=== PATIENT | male | born 1940 | race Caucasian/White ===

== ENCOUNTER 2016-12-09 09:22 | Observation (INO) | payer BC ==
--- NOTE | ~2016-12-09 | HP ---
History And Physical [facility] [address] [facility] [address] [place]. [address] NAME: ZONIA MORIN : 42 STATUS : ADM Praful PAT#: [id number] AGE: 76 ADM/REG DATE : 12/09/16 MR#: [id number] REPORT SERV DATE: 12/09/16 DICTATED BY: MIKEL MOHAN DATE: 12/09/16 REPORT STATUS : Draft TRANSCRIBED BY: MODL DATE: 12/09/16 DATE OF ADMISSION: 12/09/2016 REASON FOR ADMISSION: Regarding shortness of breath, chest discomfort, and persistent atrial fibrillation. HISTORY OF PRESENT ILLNESS: Mr. Morin is a 76-year-old gentleman, who sees Dr. Vincent Lynch as well as has also seen Dr. Josue Ponce at the [place] [facility]. He has been noted to have persistent atrial fibrillation and underwent cardioversion in 09/2016. He converted to sinus rhythm at that time, but did not maintain sinus rhythm and when he was seen back in the office in early September, he was noted to be in atrial fibrillation again, although with a reasonably controlled ventricular response on high-dose metoprolol. He was complaining of increasing shortness of breath along with complaints of chest discomfort described as chest tightness associated with activity. He had been referred to Pulmonary Medicine in [place] and apparently, a CT scan was done, showing evidence for emphysematous disease. The patient does have a long tobacco abuse history, although he quit nearly 30 years ago. He received an echocardiogram as well, showing essentially normal cardiac structure and function. Today, he presented to [facility] because he has been having worsening problems with both the shortness of breath, especially while lying down flat, and chest tightness. His workup in the [facility] indicated possibility for congestive heart failure both by exam as well as chest x-ray showing some evidence of pulmonary vascular congestion and an elevated BNP of 403. The patient did receive a dose of IV Lasix in the emergency room. He did put out about 2 L to this medication, but says that his symptoms have essentially been unchanged. His workup in the emergency room apart from the atrial fibrillation was otherwise unremarkable, and his initial troponin was less than 0.02. He is admitted for further workup and treatment. PAST MEDICAL HISTORY: Notable for a history of hypertension, history of persistent atrial fibrillation, longstanding tobacco abuse, and probable COPD and emphysema. HOME MEDICATIONS: Include albuterol, beclomethasone, Prevacid, Medrol Dosepak, metoprolol, and warfarin 4 mg p.o. daily. FAMILY HISTORY: Noncontributory. Negative for premature coronary disease or sudden cardiac . SOCIAL HISTORY: Long history of tobacco abuse, although he has quit for 30 years. . Denies alcohol abuse or illicit drug use. REVIEW OF SYSTEMS: As noted above. All other systems reviewed and negative. PHYSICAL EXAMINATION: GENERAL: He is in no acute distress. History And Physical [address] [address] NAME: ZONIA MORIN : 42 STATUS : ADM Praful PAT#: [id number] AGE: 76 ADM/REG DATE : 12/09/16 MR#: [id number] REPORT SERV DATE: 12/09/16 DICTATED BY: MIKEL MOHAN DATE: 12/09/16 REPORT STATUS : Draft TRANSCRIBED BY: MODJay DATE: 12/09/16 VITAL SIGNS: Blood pressure of 130/72; his pulse is 84, irregularly irregular, in atrial fibrillation; respirations of 18; O2 sat of 98%. GENERAL: Well developed, well nourished. HEENT: No icterus. Good dentition. NECK: Supple. No masses or thyromegaly. LUNGS: Breathing comfortably. No rales or wheezes. COR: He has an irregularly irregular rhythm. ABD: Soft, nondistended, nontender. No hepatosplenomegaly. EXT: No clubbing, cyanosis, or edema. Peripheral pulses 2+/= bilaterally. SKIN: Warm and dry. No visible lesions. MS: Chest wall without deformity. No obvious clavicular fractures. NEURO/PSYCH: Oriented x3. No anxiety or depression. IMAGING: Chest x-ray on admission did show some mild evidence for pulmonary vascular congestion and some emphysematous changes. LABORATORY VALUES: As mentioned, his BNP was elevated at 403. His INR was 2.3. His white count is 7.0, hematocrit of 41, platelet count 261. Electrolytes are within normal limits with a BUN of 13, creatinine of 1.10, glucose of 94. Troponin was less than 0.02. IMPRESSION: The patient's main complaints are shortness of breath and chest tightness with exertion, suggesting the possibility of unstable angina. The symptoms above could be secondary to: 1. Undiagnosed coronary disease. 2. Persistent atrial fibrillation, status post cardioversion, but early recurrence of atrial fibrillation and currently in atrial fibrillation, although with good control of ventricular response on high-dose beta-ryann. 3. Congestive heart failure, and there is some evidence for this on his initial exam and chest x-ray as well as his elevated BNP. He had a recent echocardiogram, showing normal cardiac structure and function and normal LV systolic function. 4. Finally emphysema/chronic obstructive pulmonary disease, long history of tobacco abuse, although quit [address] scan with evidence for emphysematous changes. RECOMMENDATIONS: 1. We will continue with IV diuresis, watch electrolytes, BUN and creatinine carefully. 2. Would recommend that the patient have a stress myocardial perfusion imaging study. Question use of exercise versus vasodilator agent. 3. In reference to his persistent atrial fibrillation and whether this is causing any part of his symptoms, I would like to try to restore normal sinus rhythm if possible. The length of time he has been in atrial fibrillation is unclear. We do have notes from 2011 showing he was in sinus rhythm, but then the most recent re-establishment with us is in 09/2016, at which time he was in atrial fibrillation. Along the lines of restoring sinus rhythm, I would decrease the metoprolol as when we electrically converted the patient, his underlying sinus rhythm was modest sinus bradycardia in the high 50s. We will try to decrease the metoprolol to 25 mg twice a day, add sotalol 80 mg twice a day, and plan cardioversion most likely this coming Saturday one day following the stress thallium. I believe his INR has been therapeutic and so we can History And Physical [address] [place]. [address] NAME: MIKELZONIA : 42 STATUS : ADM Praful PAT#: [id number] AGE: 76 ADM/REG DATE : 12/09/16 MR#: [id number] REPORT SERV DATE: 12/09/16 DICTATED BY: MIKEL MOHAN DATE: 12/09/16 REPORT STATUS : Draft TRANSCRIBED BY: MODL DATE: 12/09/16 likely do this without a transesophageal echocardiogram. We will continue the sotalol, continue his Coumadin, and hope that the patient can maintain sinus rhythm. These plans could change if the patient was found to have a high risk stress test, in which case we may need to defer the cardioversion and plan for a cardiac catheterization instead, in which case likely we would have to discontinue the Coumadin. 4. In terms of his emphysema, he is already receiving steroids orally along with appropriate inhalers and there does not appear to be much more that we have to offer in that regard. RADHA/KATIE Mikel Mohan M.D. / [id number] CC: Mikel Mohan M.D.
--- NOTE | ~2016-12-09 | OP ---
Record Of Operation [facility] [address] [place] [address] NAME: ZONIA MORIN : 42 STATUS : ADM [facility]ful PAT#: [id number] AGE: 76 ADM/REG DATE : 12/09/16 MR#: [id number] REPORT SERV DATE: 12/11/16 DICTATED BY: MIKEL MOHAN DATE: 12/11/16 REPORT STATUS : Draft TRANSCRIBED BY: MODL DATE: 12/11/16 DATE OF PROCEDURE: 12/11/2016 ELECTROPHYSIOLOGY PROCEDURE NOTE TYPE OF PROCEDURE: Direct current cardioversion. INDICATIONS: Atrial fibrillation. ANTIARRHYTHMIC MEDICINE: Sotalol 80 mg b.i.d. ANTICOAGULANT: Coumadin. PT/INR has been therapeutic and INR today is 2.2. The patient was taken to the cardiac short-stay unit in a fasting, nonsedated state. R2 pads were placed in an anterior-posterior position. Following anesthesia with propofol, please see Anesthesia's note for further details, the patient underwent a direct current cardioversion at 200 joules with a biphasic waveform in a synchronized fashion. This restored normal sinus rhythm with occasional PACs noted. The patient awoke from anesthesia without complications. IMPRESSION: Successful direct current cardioversion. Plan is to continue the patient's use of sotalol as an antiarrhythmic agent and Coumadin for anticoagulant. RADHA/KATIE Mikel Mohan M.D. / [id number] CC: Nevin Russell M.D.
[~2016-12-09 09:22] MED LIST: ASAB PO; ASMANEX INH; HEMOCYTET PO; LORTAB 5 PO; PREV15 PO; VENTOLIN HFA INH
[2016-12-09 10:44] LABS: BASOPHILS 0.4 %; BASOPHILS ABSOLUTE 0.03 10/3/uL (0.0-0.16); EOSINOPHILS 4.4 %; EOSINOPHILS ABSOLUTE 0.31 10/3/uL (0.0-0.53); IMMATURE GRANULOCYTES 0.4 %; IMMATURE GRANULOCYTES ABSOLUTE 0.03 10/3/uL (0.0-0.11); LYMPHOCYTES 29.4 %; LYMPHOCYTES ABSOLUTE 2.06 10/3/uL (0.67-4.30); MEAN CORPUS HGB CONC 32.8 g/dL (32.0-36.0); MEAN CORPUSCULAR HEMOGLOB 29.3 pg (26.0-34.0); MEAN PLATELET VOLUME 8.8 fL (9.2-13.0); MONOCYTES 10.6 %; MONOCYTES ABSOLUTE 0.74 10/3/uL (0.21-1.20); NEUTROPHILS 54.8 %; NEUTROPHILS ABSOLUTE 3.83 10/3/uL (2.02-8.40); PLATELET COUNT 261 10/3/uL (150-400); RBC DISTRIBUTION WIDTH 15.3 % (12.0-16.0); RED CELL COUNT 4.61 10/6/uL (4.7-6.1)
[2016-12-09 10:48] LABS: HEMATOCRIT 41.1 % (40.0-51.0); HEMOGLOBIN 13.5 g/dL (13.6-17.8); MANUAL DIFF NO %; MEAN CORPUSCULAR VOLUME 89.2 fL (80-100)
[2016-12-09 10:52] LABS: INTERNATIONAL NORMAL RATI 2.3 UNITS (-); PARTIAL THROMBO TIME 37.4 SEC (22.5-37.2)
[2016-12-09 10:53] LABS: PROTIME (NOT ORD) 24.8 SEC (12.0-14.5)
[2016-12-09 11:01] LABS: BUN (BLOOD UREA NITROGEN) 13 MG/DL (6-23); CALCIUM, SERUM 8.7 MG/DL (8.5-10.4); CHEST PAIN PROFILE TAT 0 Hrs 21 Mins; CHLORIDE, SERUM 105 MMOL/L (96-112); GFR AFRICAN AMERICAN 76 ML/MIN (>=60); GFR NON AFRICAN AMERICAN 65 ML/MIN (>=60); GLUCOSE, SERUM 94 MG/DL (60-99); POTASSIUM, SERUM 3.9 MMOL/L (3.5-5.3); SODIUM, SERUM 142 MMOL/L (135-148); TROPONIN I <0.02 NG/ML (<0.05)
[2016-12-09 11:02] LABS: CO2 (CARBON DIOXIDE) 27 MMOL/L (24-34)
[2016-12-09] MEDS ORDERED: QVAR80 MCG INH (11:20)
[2016-12-09] MEDS ORDERED: PROAIR HFA INH (11:20)
[2016-12-09] MEDS ORDERED: HALF81 PO (11:20)
[2016-12-09] MEDS ORDERED: JANTOVEN4 MG PO (11:20)
[2016-12-09] MEDS ORDERED: PREV15 PO (11:21)
[2016-12-09] MEDS ORDERED: LOP100 PO (11:21)
[2016-12-09] MEDS ORDERED: MULTIVIT/MIN PO (11:21)
[2016-12-09] MEDS ORDERED: MEDROLPAK4 PO (11:22)
[2016-12-09] MEDS ORDERED: TRIAMCINOLONE C80 GM TOP (11:22)
[2016-12-09 16:42] LABS: BASOPHILS 0.3 %; BASOPHILS ABSOLUTE 0.02 10/3/uL (0.0-0.16); EOSINOPHILS 4.4 %; EOSINOPHILS ABSOLUTE 0.32 10/3/uL (0.0-0.53); HEMATOCRIT 41.5 % (40.0-51.0); HEMOGLOBIN 13.5 g/dL (13.6-17.8); IMMATURE GRANULOCYTES 0.3 %; IMMATURE GRANULOCYTES ABSOLUTE 0.02 10/3/uL (0.0-0.11); LYMPHOCYTES 29.3 %; LYMPHOCYTES ABSOLUTE 2.15 10/3/uL (0.67-4.30); MEAN CORPUS HGB CONC 32.5 g/dL (32.0-36.0); MEAN CORPUSCULAR HEMOGLOB 29.3 pg (26.0-34.0); MONOCYTES 13.2 %; MONOCYTES ABSOLUTE 0.97 10/3/uL (0.21-1.20); NEUTROPHILS 52.5 %; NEUTROPHILS ABSOLUTE 3.85 10/3/uL (2.02-8.40); PLATELET COUNT 251 10/3/uL (150-400); RBC DISTRIBUTION WIDTH 15.3 % (12.0-16.0); RED CELL COUNT 4.61 10/6/uL (4.7-6.1); WHITE BLOOD CELLS 7.3 10/3/uL (4.5-10.5)
[2016-12-09 16:43] LABS: MANUAL DIFF NO %
[2016-12-09 16:57] LABS: BUN (BLOOD UREA NITROGEN) 13 MG/DL (6-23); CALCIUM, SERUM 8.7 MG/DL (8.5-10.4); CHLORIDE, SERUM 102 MMOL/L (96-112); CREATININE 1.31 MG/DL (0.70-1.30); GFR AFRICAN AMERICAN 61 ML/MIN (>=60); GFR NON AFRICAN AMERICAN 53 ML/MIN (>=60); GLUCOSE, SERUM 103 MG/DL (60-99); POTASSIUM, SERUM 4.3 MMOL/L (3.5-5.3); SODIUM, SERUM 142 MMOL/L (135-148); TROPONIN I <0.02 NG/ML (<0.05)
[2016-12-09 16:58] LABS: CO2 (CARBON DIOXIDE) 33 MMOL/L (24-34)
[2016-12-10 03:52] LABS: INTERNATIONAL NORMAL RATI 2.2 UNITS (-); PROTIME (NOT ORD) 24.1 SEC (12.0-14.5)
[2016-12-11 04:14] LABS: BASOPHILS 0.4 %; BASOPHILS ABSOLUTE 0.03 10/3/uL (0.0-0.16); HEMATOCRIT 44.6 % (40.0-51.0); IMMATURE GRANULOCYTES 0.4 %; IMMATURE GRANULOCYTES ABSOLUTE 0.03 10/3/uL (0.0-0.11); LYMPHOCYTES 29.7 %; LYMPHOCYTES ABSOLUTE 2.36 10/3/uL (0.67-4.30); MEAN CORPUS HGB CONC 33.6 g/dL (32.0-36.0); MEAN CORPUSCULAR HEMOGLOB 29.7 pg (26.0-34.0); MEAN CORPUSCULAR VOLUME 88.3 fL (80-100); MONOCYTES 10.1 %; NEUTROPHILS 54.4 %; NEUTROPHILS ABSOLUTE 4.32 10/3/uL (2.02-8.40); PLATELET COUNT 267 10/3/uL (150-400); RBC DISTRIBUTION WIDTH 14.8 % (12.0-16.0); RED CELL COUNT 5.05 10/6/uL (4.7-6.1); WHITE BLOOD CELLS 7.9 10/3/uL (4.5-10.5)
[2016-12-11 04:16] LABS: MANUAL DIFF NO %
[2016-12-11 04:21] LABS: INTERNATIONAL NORMAL RATI 2.2 UNITS (-); PROTIME (NOT ORD) 24.1 SEC (12.0-14.5)
[2016-12-11 04:31] LABS: CALCIUM, SERUM 8.5 MG/DL (8.5-10.4); CHLORIDE, SERUM 100 MMOL/L (96-112); CO2 (CARBON DIOXIDE) 30 MMOL/L (24-34); CREATININE 1.38 MG/DL (0.70-1.30); GFR AFRICAN AMERICAN 58 ML/MIN (>=60); GFR NON AFRICAN AMERICAN 50 ML/MIN (>=60); GLUCOSE, SERUM 104 MG/DL (60-99); POTASSIUM, SERUM 3.5 MMOL/L (3.5-5.3); SODIUM, SERUM 140 MMOL/L (135-148)
[2016-12-11 04:58] LABS: BUN (BLOOD UREA NITROGEN) 22 MG/DL (6-23)
[2016-12-11] MEDS ORDERED: L40 PO (10:12)
[2016-12-11] MEDS ORDERED: KLOR-CON M2020 MEQ PO (10:13)
[2016-12-11] MEDS ORDERED: BETAP120 PO (10:14)
== END 2016-12-11 11:21 | disposition home or self-care (01) ==
LOC: ER 09:22 → CDU1 11:55 → CDU2 12:11
PROVIDERS: Hospitalist; Internal Medicine Cardiovascular Disease
DX: I48.1 Persistent atrial fibrillation (principal); I25.10 Atherosclerotic heart disease of native coronary artery without angina pectoris; J45.909 Unspecified asthma, uncomplicated; I50.9 Heart failure, unspecified; I11.0 Hypertensive heart disease with heart failure; J44.9 Chronic obstructive pulmonary disease, unspecified; Z87.891 Personal history of nicotine dependence; Z98.890 Other specified postprocedural states
CPT/HCPCS: 71010; 78452; 80048; 83735; 83880; 84484; 85025; 85610; 85730; 92960; 93005; 93017; 96374; 96375; 96376; 99285; A9270-GY; A9502; G0378; J0280; J2785

== ENCOUNTER 2016-12-16 13:41 | Emergency (ER) | payer BC ==
[~2016-12-16 13:41] MED LIST changes: +BETAP120 PO; +HALF81 PO; +JANTOVEN4 MG PO; +KLOR-CON M2020 MEQ PO; +L40 PO; +LOP100 PO; +MEDROLPAK4 PO; +MULTIVIT/MIN PO; +PROAIR HFA INH; +QVAR80 MCG INH; +TRIAMCINOLONE C80 GM TOP
[2016-12-16 14:27] LABS: BASOPHILS 0.4 %; BASOPHILS ABSOLUTE 0.03 10/3/uL (0.0-0.16); EOSINOPHILS 5.2 %; EOSINOPHILS ABSOLUTE 0.36 10/3/uL (0.0-0.53); ER CBC TAT 0 Hrs 05 Mins; HEMOGLOBIN 12.6 g/dL (13.6-17.8); IMMATURE GRANULOCYTES 0.3 %; IMMATURE GRANULOCYTES ABSOLUTE 0.02 10/3/uL (0.0-0.11); LYMPHOCYTES 30.4 %; LYMPHOCYTES ABSOLUTE 2.11 10/3/uL (0.67-4.30); MEAN CORPUS HGB CONC 32.1 g/dL (32.0-36.0); MEAN CORPUSCULAR HEMOGLOB 28.6 pg (26.0-34.0); MEAN CORPUSCULAR VOLUME 89.1 fL (80-100); MEAN PLATELET VOLUME 9.1 fL (9.2-13.0); MONOCYTES 10.6 %; MONOCYTES ABSOLUTE 0.74 10/3/uL (0.21-1.20); NEUTROPHILS 53.1 %; NEUTROPHILS ABSOLUTE 3.69 10/3/uL (2.02-8.40); PLATELET COUNT 223 10/3/uL (150-400)
[2016-12-16 14:28] LABS: HEMATOCRIT 39.2 % (40.0-51.0); MANUAL DIFF NO %
[2016-12-16 14:35] LABS: INTERNATIONAL NORMAL RATI 2.5 UNITS (-); PROTIME (NOT ORD) 26.9 SEC (12.0-14.5)
[2016-12-16 14:42] LABS: A/G RATIO 0.7 (0.7-1.9); ALBUMIN 3.1 G/DL (3.5-5.0); ALKALINE PHOSPHATASE 74 U/L (45-117); CALCIUM, SERUM 8.7 MG/DL (8.5-10.4); CHLORIDE, SERUM 106 MMOL/L (96-112); CO2 (CARBON DIOXIDE) 30 MMOL/L (24-34); CREATININE 1.18 MG/DL (0.70-1.30); GFR AFRICAN AMERICAN 70 ML/MIN (>=60); GFR NON AFRICAN AMERICAN 60 ML/MIN (>=60); GLUCOSE, SERUM 87 MG/DL (60-99); POTASSIUM, SERUM 3.7 MMOL/L (3.5-5.3); SGOT(AST) 24 U/L (5-40); SGPT(ALT) 18 U/L (5-65); SODIUM, SERUM 142 MMOL/L (135-148); TOTAL BILIRUBIN 0.7 MG/DL (0-1.2); TOTAL PROTEIN 7.4 G/DL (6.0-8.5); TROPONIN I <0.02 NG/ML (<0.05)
[2016-12-16 14:43] LABS: BUN (BLOOD UREA NITROGEN) 12 MG/DL (6-23); GLOBULIN 4.3 G/DL (2.5-4.1)
== END 2016-12-16 17:12 | disposition home or self-care (01) ==
LOC: ER 13:41
PROVIDERS: Emergency Medicine
DX: J84.10 Pulmonary fibrosis, unspecified (principal); I10 Essential (primary) hypertension; J44.9 Chronic obstructive pulmonary disease, unspecified; I48.91 Unspecified atrial fibrillation; Z87.891 Personal history of nicotine dependence; Z88.0 Allergy status to penicillin; Z79.82 Long term (current) use of aspirin; Z79.01 Long term (current) use of anticoagulants
CPT/HCPCS: 71010; 80053; 83880; 84484; 85025; 85610; 93005; 94640; 96374; 96375; 99285; J2930